=== PATIENT | male | born 1995 | race Caucasian/White ===

== ENCOUNTER 2025-03-06 13:09 | Emergency (ER) | payer OTHER, SELFPAY ==
[2025-03-06 13:11] VITALS: BP 165/104; PULSE 82; RESP 16; TEMP 36.6; O2SAT 99
--- OUTSIDE RECORDS SUMMARY | 2025-03-06 13:11 | XMS_ITS | Encounter Summary ---
Author Organization [facility] Address [address] [place] [address] Phone Care Team Providers Care Steam Shovel Runner Name Role Phone Dolly Tabares APRN, CNP Primary Care Provid er Encounter Details Date Type Department Care Team (Late st Contact Info) Description 05/04/2020 Telephone [facility] [address] [place] [address] Dolly Tabares APRN, PARK AIDE #[address] [phone] Social History Tobacco Use Types Packs/Day Years Used Date Smoking Tobacco: Every Day Cigarettes 1 14.6 Started: 08/11/2010 Smokeless Tobacco: Never Alcohol Use Standard Drinks/Week Comments Yes 40 (1 standard drink = 0.6 oz pu re alcohol) AUDIT-C Answer Date Recorded Frequency of Alcohol Consumption Not on file 03/10/2020 Q2: How many drinks containi ng alcohol do you have on a typical day when you are drinking? 1 or 2 03/10/2020 Frequency of Binge Drinking Not on file 02/10 PHQ-2 Answer Date Recorded Total Score - Questions 1-9 0 02/10 Sexually Active Control Partners Comments Yes Inserts Female Sex and Gender Information Value Date Recorded Sex Assigned at Not on file Legal Sex Male 10:15 PM CDT Gender Identity Not on file Sexual Orientation Not on file COVID-19 Exposure Response Date Recorded In the last month, have you been in contact with someone who was confirmed or suspected to have Coronavirus / COVID-19? No / Unsure 05/04/2020 2:31 PM CDT documented as of this encounter Miscellaneous Notes * Telephone Encounter - Gail Becerril RN - 05/04/2020 1:16 PM CDT SITUATION: sore throat and runny nose chills BACKGROUND: Reports that he has already had Covid/ March 22 ASSESSMENT: Symptom Description / Location: Started yesterday morning with sore throat body aches chills runny nose Pain (0-10): sore throat Temp: 99.7 Treatment / Response: nyquil does not seem to help/ motrin helped Asking to see a provider as he needs a note for work Appt made for today RECOMMENDATION: See care advice and disposition for Guideline First positive answer recorded, all responses to prior questions were negative. If symptoms increase, change or if new symptoms develop, call your HCP or call back. Recommendations were based on caller information and is not a diagnosis. Verified and reviewed all triage information with caller. documented in this encounter Plan of Treatment Not on file documented as of this encounter Visit Diagnoses Not on filedocumented in this encounter Additional Health Concerns Assessment Noted Time PHQ-9 Depression Total Score: 0 03/10/20 20 4:12 PM CDT documented as of this encounter Care Teams Steam Shovel Runner Relationship Specialty Start Date End Date Dolly Tabares APRN, JAYDON #[address] [phone] PCP - General Advanced Practice Nurse 03/10/20 documented as of this encounter
--- OUTSIDE RECORDS SUMMARY | 2025-03-06 13:11 | XMS_ITS | Clinical Summary ---
Author Organization [facility] Address [address] [place] [address] Phone Care Team Providers Care Transition Rn Name Role Phone Unavailable Primary Care Provider Unavailabl e Allergies No known active allergies Medications Varenicline Tartrate (CHANTIX STARTING MONTH ) 0.5 MG X 11 & 1 MG X 42 MiscIndications :Tobacco abuse counseling Take as directed, stop smoking within 3 weeks. 53 Tab 03/10/2020 Active fluticasone (FLONASE) 50 MCG/ACT Suspension 1-2 Sprays by Nasal route daily. Use in each nostril as directed. 1 Bottle 05/04/2020 Active varenicline (CHANTIX) 1 MG Tablet Take 1 Tablet by mouth 2 times daily. 60 Tablet 1 03/15/2021 Active Active Problems No known active problems Immunizations Immunization Administration Dates Next Due TDAP Vaccine 03/03/2017 Family History Medical History Relation Name Comments High Cholesterol Father Colon Cancer Maternal Grandfather Lung Cancer Maternal Grandfather Melanoma Maternal Grandfather Lung Cancer Maternal Grandmother Breast Cancer Mother Cancer Paternal Grandfather pancrea tic Relation Name Status Comments Father Alive Maternal Grandfather Maternal Grandmother Mother Alive Paternal Grandfather Paternal Grandmother Sister Alive Social History Tobacco Use Types Packs/Day Years Used Date Smoking Tobacco: Every Day Cigarettes 1 14.6 Started: 08/11/2010 Smokeless Tobacco: Never Tobacco Cessation:Ready to Q uit: No; Counseling Given: Yes Alcohol Use Standard Drinks/Week Comments Yes 40 [...] Recorded Total Score - Questions 1-9 0 12/2020 Sexually Active Control Partners Comments Yes Inserts Female Sex and Gender Information Value Date Recorded Sex Assigned at Not on file Legal Sex Male 10:15 PM CDT Gender Identity Not on file Sexual Orientation Not on file Last Filed Vital Signs Vital Sign Reading Time Taken Comments Blood Pressure 122/78 03/15/2021 3:16 PM CDT Pulse 68 03/15/2021 3:16 PM CDT Temperature 36.7 C (98.1 F) 03/15/2021 3:16 PM CDT Respiratory Rate 16 03/15/2021 3:16 PM CDT Oxygen Saturation 97% 03/15/2021 3:16 PM CDT Inhaled Oxygen Concentration - - Weight 71.7 kg (158 lb) 03/15/2021 3:16 PM CDT Height 182.9 cm (6') 03/15/2021 3:16 PM CDT Body Mass Index 21.43 03/15/2021 3:16 PM CDT Plan of Treatment Health Maintenance Due Date Last Done Comments Hepatitis C Virus (HCV) Screening 1993 Human Papillomavirus (HPV) Immunization (1 - Male 3-dose series) 2008 Hepatitis B Immunization (1 of 3 - 19+ 3-dose series) 2012 SARS-COV-2 Immunization ( - 2023- season) 2024 Influenza Immunization (#1) 2025 Respiratory Syncytial Virus (RSV) Immunization (Adult) (1 - 1-dose 75+ series) 2068 DTaP/Tdap/Td Immunization Discontinued 03/03/2017 Meningococcal Immunization (ACWY) Aged Out No longer eligible based on patient's age to complete this topic Pneumococcal Immunization Combined Aged Out No longer eligible based on patient's age to complete this topic Rotavirus Immunization Aged Out No lo nger eligible based on patient's age to complete this topic
--- OUTSIDE RECORDS SUMMARY | 2025-03-06 14:28 | XMS_ITS | Clinical Summary ---
Author Organization [facility] Address [address] [place] [address] Phone Care Team Providers Care Garbage Collector Supervisor Name Role Phone Unavailable Primary Care Provider [...]
--- OUTSIDE RECORDS SUMMARY | 2025-03-06 14:28 | XMS_ITS | Encounter Summary ---
Author Organization [facility] Address [address] [place] [address] Phone Care Team Providers Care Telephoto Engineer Name Role Phone Dolly Tabares APRN, CNP Primary Care Provid er Encounter Details Date Type Department Care Team (Late st Contact Info) Description 05/04/2020 Telephone [facility] [address] [place] [address] Dolly Tabares APRN, CASTING ROOM OPERATOR #[address] [phone] Social History Tobacco Use Types [...] documented as of this encounter Care Teams Telephoto Engineer Relationship Specialty Start Date End Date Dolly Tabares APRN, JAYDON #[address] [phone] PCP - General Advanced Practice Nurse 03/10/20 documented as of this encounter
--- NOTE | 2025-03-06 15:29 | ED.ANXIETY ---
HPI - Anxiety General Chief Complaint: Anxiety Stated Complaint: ANXIETY Time Seen by Provider: 03/06/25 14:20 Source: patient Mode of arrival: ambulatory Limitations: no limitations History of Present Illness HPI narrative: This is a 29-year-old male that presents to the emergency department for acute anxiety. Reports this has been ongoing over the last month. Reports he has panic attacks. He has had some increased stress at work lately. He does not currently have a primary provider. He does not take any medications for anxiety. Related Data Allergies Allergy/AdvReac Type Severity Reaction Status Date / Time No Known Allergies Allergy Unknown Verified 03/06/25 14:18 Review of Systems Review of Systems: All systems reviewed & are unremarkable except as noted in HPI and below PMFSH Past Medical History Medical History (Updated 03/06/25 @ 15:32 by Dhara Gallego PA-C) No active medical problems Social History Social History (Updated 03/06/25 @ 15:32 by Dhara Gallego PA-C) Alcohol intake: current Substance use type: does not use Exam Narrative: GENERAL: Well-appearing, well-nourished, and in no acute distress. HEAD: Normocephalic, atraumatic. EYES: EOMI. CHEST: Clear to auscultation. No respiratory distress. No wheezes rales or rhonchi HEART: Regular rate and rhythm. No murmur heard. Normal peripheral pulses. EXTREMITIES: Normal range of motion. No edema. SKIN: Warm, dry, no rash. NEURO: No focal deficits. Alert and oriented x3. PSYCH: Anxious Course Vital Signs Vital signs: Vital Signs Temperature 97.9 F 03/06/25 13:11 Pulse Rate 82 03/06/25 13:11 Respiratory Rate 16 03/06/25 13:11 Blood Pressure 165/104 H 03/06/25 13:11 Pulse Oximetry 99 03/06/25 13:11 Oxygen Delivery Room Air 03/06/25 13:11 Temperature 97.9 F 03/06/25 13:11 Pulse Rate 82 03/06/25 13:11 Respiratory Rate 16 03/06/25 13:11 Blood Pressure 165/104 H 03/06/25 13:11 Pulse Oximetry 99 03/06/25 13:11 Oxygen Delivery Room Air 03/06/25 13:11 MDM - Anxiety MDM Narrative Medical decision making narrative: Patient presents the emergency department for panic attacks. Reports he has had some increased stress at work which is causing this. I offered evaluation by crisis, patient declines at this time. He has no thoughts of harming himself. Will give him p.r.n. anxiety medication and follow-up with PCP for further management Differential Diagnosis Differential diagnosis: Likely hyperventilation, panic disorder and acute anxiety Critical Care Time Critical Care Time Critical Care Time: No Discharge Plan Discharge Clinical Impression: Acute anxiety Patient Disposition: Home Condition: Stable Instructions: Anxiety (ED) Additional Instructions: Return to the ER if you have thoughts of harming yourself or any other symptoms that are concerning to you Follow up with primary care doctor for further management Patient Language: Faroese Prescriptions: New buspirone 10 mg tablet 10 mg PO BID PRN (Reason: anxiety) Qty: 10 0RF Follow-up/Referrals: PHYSICIAN,GLEASON OPERATOR [Primary Care Provider] - Jose Shetty MD [Physician] -
== END 2025-03-06 15:37 | disposition home or self-care (01) ==
PROVIDERS: Emergency Provider Physician Assistant
DX: F41.9 Anxiety disorder, unspecified (principal)
CPT/HCPCS: 99281